=== PATIENT | male | born 1995 | race Two or more races ===

== ENCOUNTER 2019-09-01 13:57 | Emergency (ER) | payer SELFPAY ==
[~2019-09-01] VITALS: Ht 188 cm; Wt 127.1 kg
--- NOTE | 2019-09-01 14:20 | PHYS DOC ---
Adult General Chief Complaint Chief Complaint: PSYCH EVALUATION HPI HPI 24-year-old male presents from the [facility] with concern of hallucinations. The patient has been having visual hallucinations lately. He denies suicidal or homicidal ideation. He is not taking his antipsychotic medications. The patient admits to intermittent methamphetamine use for the last 4 years. He states that he only has suicidal or homicidal thoughts when he uses drugs. He does not have those thoughts right now. He has had a cough for a couple days and is concerned about bronchitis or pneumonia. He does not believe he is had a fever. (SO COTTER DO) Review of Systems Review of Systems Constitutional: Denies fever or chills [] Eyes: Denies change in visual acuity, redness, or eye pain [] HENT: Denies nasal congestion or sore throat [] Respiratory: Cough without shortness of breath [] Cardiovascular: No additional information not addressed in HPI [] GI: Denies abdominal pain, nausea, vomiting, bloody stools or diarrhea [] : Denies dysuria or hematuria [] Musculoskeletal: Denies back pain or joint pain [] Integument: Denies rash or skin lesions [] Neurologic: Visual hallucinations. Denies headache, focal weakness or sensory changes [] Endocrine: Denies polyuria or polydipsia [] All other systems were reviewed and found to be within normal limits, except as documented in this note. (SO COTTER DO) Physical Exam Physical Exam Constitutional: Well developed, well nourished, no acute distress, non-toxic appearance. [] HENT: Normocephalic, atraumatic, bilateral external ears normal, oropharynx moist, no oral exudates, nose normal. [] Eyes: PERRLA, EOMI, conjunctiva normal, no discharge. [] Neck: Normal range of motion, no tenderness, supple, no stridor. [] Cardiovascular:Heart rate regular rhythm, no murmur [] Lungs & Thorax: Bilateral breath sounds clear to auscultation [] Abdomen: Bowel sounds normal, soft, no tenderness, no masses, no pulsatile masses. [] Skin: Warm, dry, no erythema, no rash. [] Back: No tenderness, no CVA tenderness. [] Extremities: No tenderness, no cyanosis, no clubbing, ROM intact, no edema. [] Neurologic: Alert and oriented X 3, normal motor function, normal sensory function, no focal deficits noted. [] Psychologic: Affect flat, mood normal. Occasionally talking to himself or an unseen person in the room.[] (SO COTTER DO) EKG EKG [] (SO COTTER DO) Radiology/Procedures Radiology/Procedures [] (SO COTTER DO) Course & Med Decision Making Course & Med Decision Making Pertinent Labs and Imaging studies reviewed. (See chart for details) The patient's labs are unremarkable. His urinalysis is negative for infection. His urine drug screen is positive for marijuana and amphetamines. Psychiatric screening is done prior to sending the patient to the emergency room. The plan is for involuntary admission. Placement is pending. We have documentation from the counseling office that the patient meets criteria for involuntary hold. It appears to be appropriate legal paperwork, but we are working on that to verify. The patient does not want to stay, because he does not want to go to [facility]. I'm signing the patient out to Dr. Hadley at 1800. He will continue to manage the patient as he waits for placement. [] (SO COTTER DO) Course & Med Decision Making Assumed care at shift change 1800hrs- Patient disposition pending placement. Patient observed. Patient calm and cooperative. 0530hrs Patient pending placement. No issure with patient overnight. Patient has had non productive cough. )600hrs Patient signed out to Dr Cotter Pending placement. (HANH HADLEY DO) Dragon Disclaimer Dragon Disclaimer This electronic medical record was generated, in whole or in part, using a voice recognition dictation system. (SO COTTER DO) Departure Departure: Impression: Primary Impression: Hallucination, visual Additional Impressions: Amphetamine abuse Marijuana use Disposition: 65 XFER TO PSYCH HOSP/UNIT Condition: STABLE Problem Qualifiers SO COTTER DO Sep 01, 2019 14:20 HANH HADLEY DO Sep 01, 2019 19:51
[2019-09-01 14:46] LABS: AMPHETAMINE/METHAMPHETAMINE POS (NEG); BARBITURATES NEG (NEG); BENZODIAZEPINES NEG (NEG); CANNABINOIDS POS (NEG); COCAINE NEG (NEG); METHADONE NEG (NEG); OPIATES NEG (NEG); PHENCYCLIDINE NEG (NEG)
[2019-09-01 14:54] LABS: BASO # 0.1 x10^3/uL (0.0-0.2); BASO % 1 % (0-3); EOS # 0.2 x10^3/uL (0.0-0.7); EOS % 2 % (0-3); HEMATOCRIT 45.7 % (39.0-53.0); HEMOGLOBIN 15.4 g/dL (13.0-17.5); LYMPH # 1.9 x10^3/uL (1.0-4.8); LYMPH % 16 % (24-48); MEAN CORPUSCULAR HEMOGLOBIN 31 pg (25-35); MEAN CORPUSCULAR HGB CONC 34 g/dL (31-37); MEAN CORPUSCULAR VOLUME 93 fL (79-100); MONO % 8 % (0-9); NEUT % 74 % (31-73); PLATELET COUNT 281 x10^3/uL (140-400); RED BLOOD COUNT 4.92 x10^6/uL (4.30-5.70); RED CELL DISTRIBUTION WIDTH 14.4 % (11.5-14.5); WHITE BLOOD COUNT 12.2 x10^3/uL (4.0-11.0)
[2019-09-01 14:59] LABS: CALCIUM 8.9 mg/dL (8.5-10.1); CREATININE 1.3 mg/dL (0.7-1.3); POTASSIUM 4.2 mmol/L (3.5-5.1)
[2019-09-01 15:05] LABS: ALBUMIN 4.1 g/dL (3.4-5.0); ALBUMIN/GLOBULIN RATIO 1.1 (1.0-1.7); TOTAL BILIRUBIN 0.8 mg/dL (0.2-1.0); TOTAL PROTEIN 7.8 g/dL (6.4-8.2)
[2019-09-01 15:24] LABS: BACTERIA,URINE 0 /HPF (0-FEW); BILIRUBIN,URINE NEG (NEG); CLARITY,URINE CLEAR; COLOR,URINE YELLOW; GLUCOSE,URINE NEG (NEG); HYALINE CASTS, URINE FEW /HPF; NITRITE,URINE NEG (NEG); SQUAMOUS EPITHELIAL CELL,UR FEW /LPF; UROBILINOGEN,URINE 0.2 mg/dL (0.2 mg/dL); WBC,URINE OCC /HPF (0-4)
[2019-09-02] MEDS ORDERED: LORazepam 1 MG TABLET ONE (07:43)
[2019-09-02] MEDS ORDERED: LORazepam 1 MG TABLET PO ONE (07:45)
[2019-09-02] MEDS ORDERED: BENZONATATE 100 MG CAPSULE. PO ONE ×2 (15:30→22:30)
[2019-09-02] MEDS ORDERED: clonazePAM 1 MG TABLET PO ONE (22:30)
[2019-09-02] MEDS ORDERED: OLANZapine 2.5 MG TABLET PO ONE (22:30)
[2019-09-03] MEDS ORDERED: BENZONATATE 100 MG CAPSULE. PO PRN (02:45)
[2019-09-03] MEDS ORDERED: guaiFENesin DM 200MG/20MG 10 ML SYRUP PO ONE (03:00)
[2019-09-03] MEDS ORDERED: clonazePAM 0.5 MG TABLET PO PRN (05:15)
[2019-09-03 07:00] VITALS: BP 146/86
[2019-09-03 07:46] LABS: INFLUENZA A PATIENT NEGATIVE (NEGATIVE); INFLUENZA B PATIENT NEGATIVE (NEGATIVE)
[2019-09-03] MEDS ORDERED: clonazePAM 1 MG TABLET PO PRN (08:22)
--- NOTE | 2019-09-03 08:36 | RAD ---
Study: CHEST PA LATERAL Indication: Cough. Comparison: None. Findings: No confluent infiltrate. No pleural effusion or pneumothorax. Unremarkable cardiomediastinal silhouette and durga. Mild thickening of scattered central and more peripheral bronchi. Impression: No confluent infiltrate to suggest an organizing pneumonia. Scattered bronchial ching appear mildly thickened which is nonspecific but could represent a manifestation of bronchitis. Electronically signed by: SEAN MCCLURE MD (09/03/2019 8:33 AM) [facility]
[2019-09-03] MEDS ORDERED: OLANZapine 5 MG TABLET PO SCH (09:00)
[2019-09-03] MEDS ORDERED: risperiDONE 1 MG TABLET. PO SCH (09:00)
[2019-09-03] MEDS ORDERED: NICOTINE POLACRILEX GUM 2 MG GUM. BC PRN (10:00)
== END 2019-09-03 14:36 | disposition home or self-care (01) ==
LOC: EEVIPCON 13:57 → ER 13:57
DX: R44.1 Visual hallucinations (principal); F15.10 Other stimulant abuse, uncomplicated; F12.10 Cannabis abuse, uncomplicated
CPT/HCPCS: 36415; 71046; 80053; 80307; 81001; 85025; 87804; 99285; G0480